=== PATIENT | female | born 1985 | race Caucasian/White ===

== ENCOUNTER 2018-05-07 16:37 | Emergency (ER) | payer BC ==
--- NOTE | 2018-05-07 17:09 | ED ---
Syncope/Near Syncope - HPI Summary HPI Summary: This patient is a 33 year old F presenting to [facility] accompanied by a male s/p near syncopal episode that occurred at 1400 this afternoon. The patient rates the pain 0/10 in severity. Patient reports dizziness, double vision, and nausea. Patient denies LOC, myalgia, LAI, v/d, ringing in her ears, recent illness, CP, SOB, palpitations, and ABD pain. 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 Right after the incident she saw the school nurse where she had all normal vitals. 2 days ago she had a LAI in her occipital region which has since resolved. LNMP was 2 weeks ago and states she is trying to get . - History Of Current Complaint Chief Complaint: EDGeneral Time Seen by Provider: 05/07/18 16:53 Hx Obtained From: Patient Onset/Duration: Sudden Onset, Resolved Timing: Intermittent Episode Lasting Associated Head Trauma: No Associated Signs And Symptoms: Negative - LOC, myalgia, LAI, v/d, ringing in her ears, recent illness, CP, SOB, palpitations, and ABD pain. - Allergies/Home Medications Allergies/Adverse Reactions: Allergies Allergy/AdvReac Type Severity Reaction Status Date / Time Penicillins Allergy Unknown Verified 05/07/18 16:48 Reaction Details Home Medications: Home Medications NK [No Home Medications Reported] 05/07/18 [History Confirmed 05/07/18] PMH/Surg Hx/FS Hx/Imm Hx Infectious Disease History: No Infectious Disease History: Denies: Traveled Outside the [place] in Last 30 Days Review of Systems Eyes: Other - double vision Positive: Nausea Neurological: Other - dizziness Positive: Syncope - near. Negative: Headache All Other Systems Reviewed And Are Negative: Yes Physical Exam - Summary Physical Exam Summary: GENERAL: Patient is a well-developed and nourished F who is lying comfortable in the stretcher. Patient is not in any acute respiratory distress. HEAD AND FACE: Normocephalic EYES: PERRLA, EOMI x 2. EARS: Hearing grossly intact. MOUTH: Oropharynx within normal limits. NECK: Supple, trachea is midline, no adenopathy, no JVD, no carotid bruit. CHEST: Symmetric, no tenderness at palpation LUNGS: Clear to auscultation bilaterally. No wheezing or crackles. CVS: Regular rate and rhythm, S1 and S2 present, no murmurs or gallops appreciated. ABDOMEN: Soft, non-tender. Bowel sounds are normal. No abdominal abnormal pulsations. EXTREMITIES: Full ROM in all major joints, no edema, no cyanosis or clubbing. NEURO: Alert and oriented x 3. No acute neurological deficits. Speech is normal and follows commands. Cranial nerves II-XII grossly intact, no dysmetria finger to nose, nml heel to hernández SKIN: Dry and warm Triage Information Reviewed: Yes Vital Signs On Initial Exam: Initial Vitals Temp Pulse Resp BP Pulse Ox 99.4 F 95 18 145/90 98 05/07/18 16:44 05/07/18 16:44 05/07/18 16:44 05/07/18 16:44 05/07/18 16:44 Vital Signs Reviewed: Yes Diagnostics - Vital Signs Vital Signs Temp Pulse Resp BP Pulse Ox 05/07/18 16:44 99.4 F 95 18 145/90 98 - Laboratory Result Diagrams: 05/07/18 17:28 05/07/18 17:28 Lab Statement: Any lab studies that have been ordered have been reviewed, and results considered in the medical decision making process. Course/Dx Assessment/Plan: This patient is a 33 year old F presenting to [facility] accompanied by a male s/p near syncopal episode that occurred at 1400 this afternoon. Workup remarkable for positive mononucleosis screen. This is most likely the cause for the patients sx. Pt was negative for flu and strep. - Diagnoses Provider Diagnoses: Mononucleosis Discharge - Sign-Out/Discharge Documenting (check all that apply): Patient Departure - Discharge Plan Condition: Stable Disposition: HOME Patient Education Materials: Mononucleosis (ED) Referrals: [facility] PHYSICIAN REFERRAL [Outside] Additional Instructions: Follow up with your primary care physician in 1-3 days. RETURN TO THE EMERGENCY DEPARTMENT FOR CHANGING OR WORSENING SYMPTOMS. - Billing Disposition and Condition Condition: STABLE Disposition: Home - Attestation Statements Document Initiated by Scribe: Yes Documenting Scribe: Kaveh Hoffman Provider For Whom Scribe is Documenting (Include Credential): Memo Avila MD Scribe Attestation: Kaveh De La Rosa, scribed for Memo Avila MD on 05/08/18 at 0733. Scribe Documentation Reviewed: Yes Provider Attestation: The documentation as recorded by the Kaveh d elos santos accurately reflects the service I personally performed and the decisions made by me, Memo Avila MD
[2018-05-07] MEDS ORDERED: Metoclopramide IV* 5 MG/ML 2 ML VIAL IV ONE (17:20)
[2018-05-07] MEDS: NS 0.9% 1000 ML* 2,000 ML IV ONE (17:37)
[2018-05-07 17:54] LABS: ABS Basophils 0 10^3/ul (0-0.2); ABS Eosinophils 0.1 10^3/ul (0-0.6); ABS Monocytes 0.8 10^3/ul (0-0.8); ABS Neutrophils 7.7 10^3/ul (1.5-7.7); ABS Nucleated RBC 0 10^3/ul; Hematocrit 43 % (35-47); Lymphocyte % 26.1 % (25-47); Mean Corpuscular HGB Conc 33 g/dl (31-36); Mean Corpuscular Hemoglobin 28 pg (27-31); Mean Corpuscular Volume 87 fL (80-97); Mean Platelet Volume 8.2 fL (7.4-10.4); Nucleated Red Blood Cells % 0; Platelet Count 322 10^3/ul (150-450); Red Blood Count 4.95 10^6/ul (4.00-5.40); Red Cell Distribution Width 14 % (10.5-15); White Blood Count 11.7 10^3/ul (3.5-10.8)
[2018-05-07 18:07] LABS: INR 0.84 (0.77-1.02)
[2018-05-07 18:18] LABS: EGFR Non-African American 91.8 (>60)
[2018-05-07 18:29] LABS: Urine Appearance Cloudy; Urine Blood Negative (Negative); Urine Color Yellow; Urine Ketones Negative (Negative); Urine Protein Negative (Negative); Urine Red Blood Cell Trace(0-2/hpf) (Absent); Urine Specific Gravity 1.011 (1.010-1.030); Urine Urobilinogen Negative (Negative); Urine White Blood Cell Trace(0-5/hpf) (Absent)
[2018-05-07 19:36] VITALS: BP 130/61
== END 2018-05-07 19:35 | disposition home or self-care (01) ==
LOC: ED 16:37
DX: B27.90 Infectious mononucleosis, unspecified without complication (principal); R55 Syncope and collapse; Z88.0 Allergy status to penicillin; R11.0 Nausea
CPT/HCPCS: 36415; 80053; 81003; 81015; 83605; 84145; 84484; 84702; 85025; 85610; 85730; 86140; 86308; 87040; 87086; 87651; 96361; 96374; 99282; J2765

== ENCOUNTER 2019-03-17 17:50 | Emergency (ER) | payer BC ==
--- OUTSIDE RECORDS SUMMARY | 2019-03-17 18:00 | XMS REPORT | Continuity of Care Document ---
:1985 External Reference #:[id number] Author Name Inocencia Guzman Care Team Providers Name Role Phone Audelia Juárez M.D. Primary Care Physician Unavailable Payers Date Identification Numbers Payment Provider Subscriber Policy Number: [id number] [employer] Gem Chavez PayID: [id number] [address] [address] [place] [address] Family History Date Family Member(s) Observation Comments Paternal Grandfather due to Cancer () Maternal Grandfather due to Heart Disease () Maternal Grandmother due to Diabetes () Social History Type Date Description Comments Sex Unknown Lives With ETOH Use Rarely consumes alcohol Tobacco Use Start: Unknown Patient has never smoked Smoking Status Reviewed: 02/02/19 Patient has never smoked Exercise Type/Frequency Exercises regularly Allergies, Adverse Reactions, Alerts Active Allergies Reaction Severity Comments Date Penicillin Hives 02/02/2019 Medications Active Medications SIG Qnty Indications Ordering Provider Date 1 by mouth every Unknown Tablets day Letrozole one daily by Unknown 2.5mg Tablets mouth Vital Signs Date Vital Result Comment 02/02/2019 8:57am Height 64 inches 5'4" Weight 208.00 lb Heart Rate 83 /min BP Systolic 123 mmHg BP Diastolic 72 mmHg O2 % BldC Oximetry 99 % BMI (Body Mass Index) 35.7 kg/m2 Plan of Treatment 02/02/2019 - Arnulfo Peters [id number] Encounter for gynecological examination ( general) (routine) with abnormal [id number] Polycystic ovarian syndromeReferral:Spencer Robins MD, Endocrinology,ReproductveFollow up:Please call with first day of period (Friday through Friday) so we can work on scheduling a Hysterosalpingogram at [facility]. Please call our office if you have not had a Prolactin blood test. I would order a fasting blood test at [facility] lab. If you get a period this month, can start Metformin one tablet at dinner. I will send the prescription to your Pharmacy.
[2019-03-17 19:04] VITALS: BP 110/71
--- NOTE | 2019-03-17 19:24 | UC ---
Skin Complaint HPI - HPI Summary HPI Summary: 34-year-old woman comes in with a chief complaint of an erythematous tender area on her left hip. For about a month she's had a slight raised area there that she thought was a bug bite. The last day needs become red and tender to palpation. No fevers no chills feels well otherwise. Patient does not think there was any foreign body initially. Patient is newly . - History of Current Complaint Chief Complaint: UCSkin Time Seen by Provider: 03/17/19 19:14 Stated Complaint: SKIN COMPLAINT-BUG BITE Hx Last Menstrual Period: 02/09/19 Pain Intensity: 0 - Allergy/Home Medications Allergies/Adverse Reactions: Allergies Allergy/AdvReac Type Severity Reaction Status Date / Time Penicillins Allergy Rash Verified 03/17/19 19:05 Home Medications: Home Medications Vit 40/Iron/Folic/Dha [[facility] Multi-Dha Softgel] 03/17/19 [ History] PMH/Surg Hx/FS Hx/Imm Hx Previously Healthy: Yes - Surgical History Surgical History: Yes Surgery Procedure, Year, and Place: tonsillectomy - Family History Known Family History: Positive: Non-Contributory - Social History Alcohol Use: None Substance Use Type: None Smoking Status (MU): Never Smoked Tobacco Review of Systems All Other Systems Reviewed And Are Negative: Yes Constitutional: Positive: Negative Skin: Positive: Other - see hpi Eyes: Positive: Negative ENT: Positive: Negative Respiratory: Positive: Negative Cardiovascular: Positive: Negative Gastrointestinal: Positive: Negative Motor: Positive: Negative Neurovascular: Positive: Negative Musculoskeletal: Positive: Negative Neurological: Positive: Negative Psychological: Positive: Negative Is Patient Immunocompromised?: No Physical Exam Triage Information Reviewed: Yes Appearance: Well-Appearing, No Pain Distress, Well-Nourished Vital Signs: Initial Vital Signs Temp 98.1 F 03/17/19 18:54 Pulse 80 03/17/19 18:54 Resp 18 03/17/19 18:54 BP 110/71 03/17/19 18:54 Pulse Ox 100 03/17/19 18:54 Vital Signs Reviewed: Yes Eye Exam: Normal Eyes: Positive: Conjunctiva Clear Neck: Positive: Supple Respiratory: Positive: No respiratory distress Musculoskeletal: Positive: Strength Intact, ROM Intact Neurological: Positive: Alert Psychological: Positive: Age Appropriate Behavior Skin: Positive: Other - In the left hip area there is a 1.5 cm area of erythema slightly raised. There is no fluctuant mass for incision and drainage. There is no streaking. It is tender to palpation. Course/Dx - Course Course Of Treatment: We will treat for infection with clindamycin as the patient is allergic to penicillins and she is . She is to get reevaluated if not completely improved worse. - Diagnoses Provider Diagnosis: Cellulitis Discharge ED - Sign-Out/Discharge Documenting (check all that apply): Patient Departure All imaging exams completed and their final reports reviewed: No Studies - Discharge Plan Condition: Stable Disposition: HOME Prescriptions: Clindamycin Cap(NF) [Clindamycin Cap 300 mg Cap(NF)] 300 mg PO TID #30 cap Patient Education Materials: Cellulitis (ED) Referrals: Audelia Juárez MD [Primary Care Provider] - Additional Instructions: FOLLOW UP WITH YOUR DOCTOR IF NOT COMPLETELY IMPROVED. GET REEVALUATED SOONER IF WORSE OR ANY QUESTIONS OR CONCERNS. - Billing Disposition and Condition Condition: STABLE Disposition: Home
[2019-03-17] MEDS ORDERED: Clindamycin CAP* 150 MG PO ONE (19:25)
== END 2019-03-17 19:42 | disposition home or self-care (01) ==
LOC: UCCORT 17:50
DX: L03.115 Cellulitis of right lower limb (principal); Z88.0 Allergy status to penicillin
CPT/HCPCS: 99212; A9270-GY; G0463